=== PATIENT | male | born 1970 | race Caucasian/White ===

== ENCOUNTER 2017-04-06 19:06 | Emergency (ER) | payer OTHER ==
[2017-04-06 19:15] VITALS: BP 134/79; BMI 22.4
--- NOTE | 2017-04-06 19:35 | DR.GENAD ---
HPI - PCP Primary Care Physician: SWAPNIL - HPI Comment HPI Comment: NO TRAUMA, NO FEVER. - Complaint/Symptoms Chief Complaint Doctors Comments: HEADACHE WITH NAUSEA AND VOMITING, INTERMITTENT SINCE THURSDAY. Chief Complaint:: HEAD HURTS - Nurses notes reviewed Nurses Notes Review: Yes - Source History Provided: Patient - Mode of Arrival Mode of Arrival: Ambulatory - Timing Onset of Chief Complaint: 04/06/17 Came on: Suddenly - Duration Duration: Constant Duration: Hours - Severity Severity: Moderate PMH - PMH Past Medical History: No Past Surgical History: No - Family History History of Family Medical Conditions: No - Social History Does patient currently use any type of tobacco product: Yes Have you used tobacco products in the last 12 months: Yes Type of Tobacco Use: Cigarettes Does any household member use tobacco: No Alcohol Use: None Do you use any recreational Drugs:: No Lives With: Spouse Lives Where: Home - infectious screening In the last 2 months have you had wt loss of >10#?: NO Have you had fever, night sweats or hemotysis?: No Have you traveled outside the country in the last 6 months?: No Isolation: Standard ROS - Review of Systems Constitutional: No Symptoms Reported Eyes: No Symptoms Reported ENTM: No Symptoms Reported Respiratoy: No Symptoms Reported Cardiovascular: No Symptoms Reported Gastrointestinal/Abdominal: No Symptoms Reported Genitourinary: No Symptoms Reported Neurological: No Symptoms Reported Musculoskeletal: No Symptoms Reported Integumentary: No Symptoms Reported Hematologic/Lymphatic: No Symptoms Reported Endocrine: No Symptoms Reported All Other Systems: Reviewed and Negative PE - Vital Signs Vitals: Temperature 98.5 F Pulse Rate 74 Respiratory Rate 16 Blood Pressure 134/79 O2 Sat by Pulse Oximetry 99 - General Limitations: No Limitations General Appearance: Alert - Head Head Exam: Normal Inspection - Eyes Eye exam: Normal Appearance - ENT ENT Exam: Normal External Ear Exam External Ear Exam: Normal External Inspection TM/Canal Exam: Bilateral Normal Nose Exam: Normal Nose Exam Mouth Exam: Normal Inspection Throat Exam: Normal Inspection - Neck Neck Exam: Trachea Midline. negative: Tenderness, Meningismus, Lymphadenopathy - Chest Chest Inspection: Symmetric Chest Wall Rise - Respiratory Respiratory Exam: Normal Lung Sounds Bilat Respiratory Exam: Bilateral Clear to Auscultation - Cardiovascular Cardiovascular Exam: Regular Rate, Normal Rhythm, Normal Heart Sounds - Abdominal Exam Abdominal Exam: Normal Bowel Sounds, Soft. negative: Tenderness - Extremities Extremities Exam: Normal Inspection - Back Back Exam: Normal Inspection - Neurologic Neurological Exam: Alert, Oriented X3 - Psychiatric Psychiatric Exam: Normal Affect, Normal Mood - Skin Skin Exam: Normal Color MDM - Additional Information Additional Information Obtained From: Family - Differential Diagnosis Differential Diagnosis: HEADACHE, SINUSITIS Course - Treatment Treatment: SEE ORDERS - Reevaluation 1st: Improved (WITH MEDS IN ED.) - Education/Counseling Education/Counseling: Patient, Family, Education Educated On: Diagnosis, Needs for Follow Up ROR - XRAY XRAY Interpreted by: Radiologist XRAY Findings: REPORT DISCUSS WITH PATIENT AND HIS FAMILLY. - Diagnosis Discharge Problem: Headache Qualifiers: Headache type: unspecified Headache chronicity pattern: acute headache Intractability: intractable Qualified Code(s): R51 - Headache - Discharge Plan Disposition: 01 HOME, SELF-CARE Condition: Stable Prescriptions: Fubkeoxntq-Lhck-Roxmtsvi [Fioricet Tab] 1 tab PO Q8H PRN #20 tab PRN Reason: Migraine Headache Ibuprofen [MOTRIN TAB 600 MG *] 600 mg PO TID PRN #20 tab PRN Reason: Pain/Inflammation - Follow ups/Referrals Follow ups/Referrals: YESSI ADAMS [STAFF PHYSICIAN] - 2 days NFD,None [Primary Care Provider] - 2 days - Instructions Instructions: General Headache Without Cause, Rhwl-[id number] Additional Instructions: RETURN TO ED IF WORSE.
--- NOTE | 2017-04-06 20:13 | CT ---
CT brain without contrast Indication: Forehead pain Comparison: None available Technique: Multiple axial images of the brain were obtained from the skull base to the vertex without administr ation of IV contrast. Coronal and sagittal images were also provided. Radiation dose reduction techniques were performed utilizing adjustment for MA/kVP based on patient body size. Findings: No acute intraparenchymal hemorrhage or mass can be identified. No extra-axial fluid collections ar e seen. No alteration in the attenuation of the brain parenchyma can be identified to suggest acute or subacute ischemic change. The ventricular system is symmetric and nondilated. The extracranial structures are grossly unremarkable. IMPRESSION: 1. No acute intracranial process is identified. Reported By:
== END 2017-04-06 20:54 | disposition home or self-care (01) ==
LOC: ER 19:23
DX: R51 Headache (principal)
CPT/HCPCS: 70450; 99282; 99283

== ENCOUNTER 2022-09-25 08:27 | Inpatient (IN) ==
[2022-09-25] MEDS ORDERED: NS 100 ML IV 100 ML ONE (09:54)
[2022-09-25] MEDS ORDERED: LR 1,000 ML IV 1,000 ML IV ONE (09:54)
[2022-09-25 10:13] LABS: BASOPHILS # (AUTO) 0.1 X10^3/uL (0.0-0.1); BASOPHILS % (AUTO) 0.7 % (0.2-1.0); EOSINOPHILS # (AUTO) 0.1 x10^3/uL (0.0-0.2); EOSINOPHILS % (AUTO) 1.5 % (0.9-2.9); HEMATOCRIT 45.9 % (42.0-54.0); HEMOGLOBIN 15.9 g/dL (13.5-18.0); LYMPHOCYTES # (AUTO) 1.3 X10^3/uL (1.3-2.9); LYMPHOCYTES % (AUTO) 15.2 % (21.0-51.0); MEAN CORPUSCULAR HGB CONC 34.5 g/dL (33.0-35.0); MEAN PLATELET VOLUME 7.5 fL (7.4-11.0); MONOCYTES # (AUTO) 0.6 x10^3/uL (0.3-0.8); MONOCYTES % (AUTO) 6.6 % (0.0-13.0); NEUTROPHILS # (AUTO) 6.7 x10^3/uL (2.2-4.8); RED BLOOD COUNT 5.47 X10^6/uL (4.7-6.0); RED CELL DISTRIBUTION WIDTH 13.5 % (11.6-16.5); WHITE BLOOD COUNT 8.8 X10^3/uL (3.6-10.0)
[2022-09-25 10:28] LABS: ALANINE AMINOTRANSFERASE 25 Units/L (12-78); ALBUMIN 3.9 g/dL (3.4-5.0); ALKALINE PHOSPHATASE 108 Units/L (46-116); ASPARTATE AMINO TRANSFERASE 19 Units/L (15-37); BLOOD UREA NITROGEN 17 mg/dL (7-18); CARBON DIOXIDE 29.5 mmol/L (21-32); CHLORIDE 100 mmol/L (98-107); CREATININE 1.31 mg/dL (0.70-1.30); SODIUM 139 mmol/L (136-145); TOTAL PROTEIN 7.2 g/dL (6.4-8.2); eGFR NON BLACK RACES > 60 (>60)
--- NOTE | 2022-09-25 10:30 | RAD ---
HISTORYpre op clearance for vascular procedureSTUDYCHEST, 1 VIEWCOMPARISONNone available.FINDINGSThe trachea is midline. The cardiac silhouette is unremarkable.The lungs are clear without focal infiltrate or effusion.The bony thorax is unremarkable.IMPRESSIONNo acute cardiopulmonary findings .Electronically signed by: BERNY ALTAMIRANO III (Sep 25, 2022 10:28:37)
[2022-09-25 10:50] VITALS: BMI 22.4
[2022-09-25] MEDS ORDERED: ANCEF VIAL 1 GRAM ONE (10:57)
[2022-09-25] MEDS ORDERED: PRECEDEX INJ VIAL IVP ONE ×3 (13:03→14:47)
[2022-09-25] MEDS ORDERED: MARCAINE 0.5% ONE (13:40)
[2022-09-25] MEDS ORDERED: HEPARIN SODIUM IN D5W 75,000 UNITS/1,500 ML BAG ONE (13:41)
[2022-09-25] MEDS ORDERED: KETAMINE HCL ONE (13:47)
[2022-09-25] MEDS ORDERED: XYLOCAINE 2 % (PLAIN) ONE ×2 (13:55→14:47)
[2022-09-25] MEDS ORDERED: PEPCID 20 MG VIAL ONE (13:55)
[2022-09-25] MEDS ORDERED: ZOFRAN INJ 4 MG VIAL ONE (13:55)
[2022-09-25] MEDS ORDERED: MAGNESIUM SULFATE 50% INJ VIAL ONE (13:55)
[2022-09-25] MEDS ORDERED: DIPRIVAN VIAL 20 ML ONE (13:55)
[2022-09-25] MEDS ORDERED: FENTANYL VIAL INJ 100 mcg ONE (13:56)
[2022-09-25] MEDS ORDERED: HEPARIN SODIUM INJ 5000 UNITS ONE (13:58)
[2022-09-25] MEDS ORDERED: PROTAMINE SULFATE 50 MG VIAL ONE (14:06)
[2022-09-25] MEDS ORDERED: NEO-SYNEPHRINE INJ ONE (14:26)
[2022-09-25] MEDS ORDERED: DIPRIVAN VIAL 40 ML ONE (14:47)
[2022-09-25] MEDS ORDERED: ROBINUL ONE ×2 (15:31→15:34)
--- NOTE | 2022-09-25 15:59 | OR.IMMED ---
IMMEDIATE POST-OP NOTE Immediate Post-Op Note Pre-Op Diagnosis: acute right leg DVT. Post-Op Diagnosis: no evidence of DVT by venogram right leg. Procedure: U/S guided access right posterior tibial vein, u/s access right superficial femoral vein , right LE venogram Description of Procedure: see operative summary Surgeon/Court Orderly: Franklin Findings: as above Estimated Blood Loss: 100 cc Complications: none Discharge Progress Notes: To [facility], Home when ready, Continue Xarelto for now. FU 1 week.. Percocet 5 mg , 1 po q 6 Hr PRN pain , #20
[2022-09-25] MEDS ORDERED: PERCOCET TAB 5/325 MG ONE (16:07)
[2022-09-25] MEDS ORDERED: DILAUDID INJ ONE (17:37)
[2022-09-25] MEDS: DILAUDID INJ IVP PRN ×2 (17:40→22:56)
[2022-09-25] MEDS ORDERED: ZOFRAN INJ 4 MG VIAL IVP PRN (19:48)
[2022-09-25] MEDS: PERCOCET TAB 5/325 MG PO PRN (20:31)
--- NOTE | 2022-09-25 23:48 | DR.UPDATE ---
H&P UPDATE Review Yes Patient was examined?: Yes
--- NOTE | 2022-09-25 23:56 | NOTE.SOAP ---
Soap Note Note for Day of Date of Exam: 09/25/22 Subjective Data Subjective Data: Patient had venogram today for diagnosis of DVT of right leg with continued pain after 10 days treating with Xarelto. Venogram was normal with on scarring and no evidence of inflammation. I doubt the original diagnosis of DVT was correct. He was to be discharged home but c/o intense right leg pain. Objective Data Objective Data: Palpable pulses right ankle. Absent Saba's sign. Assessment Assessment: continued right leg pain Plan Plan: Admit for pain control, MRI of right leg and back tomorrow.
[2022-09-26] MEDS: LR 1,000 ML IV 1,000 ML IV SCH ×2 (00:49→13:09)
[2022-09-26] MEDS: PERCOCET TAB 5/325 MG PO PRN ×3 (00:50→11:06)
[2022-09-26] MEDS: DILAUDID INJ IVP PRN ×4 (03:29→19:35)
[2022-09-26 06:22] LABS: BLOOD UREA NITROGEN 16 mg/dL (7-18); CALCIUM 8.2 mg/dL (8.5-10.1); CARBON DIOXIDE 30.6 mmol/L (21-32); CHLORIDE 101 mmol/L (98-107); CREATININE 1.28 mg/dL (0.70-1.30); SODIUM 137 mmol/L (136-145); eGFR NON BLACK RACES > 60 (>60)
[2022-09-26] MEDS ORDERED: ZESTRIL TAB 20 MG ONE (08:23)
[2022-09-26] MEDS: CELEBREX PO SCH (08:28)
[2022-09-26] MEDS: ZESTRIL TAB 20 MG PO SCH (08:28)
[2022-09-26] MEDS: XARELTO PO SCH (11:11)
--- NOTE | 2022-09-26 14:01 | MRI ---
HISTORYlow back pain ; pain in right lower ext.STUDYMRI L SPINE W/O CONTRASTCOMPARISONNoneTECHNIQUEMultiplan ar multisequence MRI of the lumbar spine was obtained without contrast using standard departmental protocol.FINDINGSNo significant scoliosis. The usual lordosis is maintained. Bone marrow signal intensity is unremarkable. The heights of the vertebral bodies are normal. No spondylolisthesis. The cord ends at an appropriate level.No hydronephrosis. No abdominal aortic aneurysm. Moderate bladder distension is present.There are mild degenerative changesNo disc abnormality or stenosis at T11-12 or T12-L1.L1 -- L2: A diffuse symmetric broad based disc bulge is present. This is minimal. Minimal ligamentum flavum thickening. This leads to a very minor trefoil appearance to the canal. Minimal lateral recess stenosis. AP sac diameter measures 9-10 mm. No significant foraminal stenosis.L2 -- L3: A diffuse symmetric broad based disc bulge is present. This is minimal. Bilateral ligamentum flavum thickening is present. Probable lateral recess stenosis. AP sac diameter measures 9-10 mm. Minimal right foraminal stenosis.L3 -- L4: A diffuse symmetric broad based disc bulge is present. This is very minimal left greater than right ligamentum flavum thickening. AP sac diameter is about 11 mm. Mild left and moderate right foraminal stenosis.L4 -- L5: Diffuse concentric disc bulge is minimal off.Bilateral ligamentum flavum thickening is present. AP sac diameter is wide. Mild left and moderate right foraminal stenosis.L5 -- S1:Diffuse concentric disc bulge is minimal to moderate in size. AP sac diameter measures 12 mm. Minimal facet arthropathy. Minimal ligamentum flavum thickening. Mild left and right foraminal stenosis.IMPRESSION1. Multilevel multifactorial degenerative changes mostly resulting in lateral recess and foraminal stenosis2. Right foraminal stenosis is more severe than left at multiple levelsElectronically signed by: Brandon Walker (Sep 26, 2022 13:58:52)
--- NOTE | 2022-09-26 17:29 | DR.OPNOTE ---
OP NOTE Pre-Op Diagnosis: Acute deep venous thrombosis right leg Post-Op Diagnosis: No obvious venous thrombosis right leg Procedure Date Date Of Procedure: 09/25/22 Procedure: PROCEDURE: ULTRASOUND GUIDED VENOGRAMS OF ENTIRE DEEP VENOUS STRUCTURES RIGHT LEG NARRATIVE: The patient was taken to the operative suite and the entire right leg prepped and draped in sterile fashion. Patient was given intravenous sedation supervised by myself. Time out for the procedure obtained. Ultrasound used to identify the right posterior tibial vein and it was approached and punctured several times using ultrasound guidance but I could not get the wire to traverse the vein as I liked. Therefore, ultrasound was used to identify the right popliteal vein and ultrasound used to guide puncture of the right popliteal vein and a 0.012 inch guidewire placed. Incision made over the wire at the skin edge and a micro sheath placed over the guide wire into the right popliteal vein . Patient given 5000 units of intravenous heparin . Venogram carried out showing normal superficial femoral vein, popliteal vein and iliac vein on the right side as well as the vena cava . I was concerned about possibly missing something at the distal part of the right leg therefore ,ultrasound was used to identify the right posterior tibial vein just below the medial malleolus and ultrasound used to guide puncture of it and is 0.012 inch guide wire placed. Incision made over this guidewire at the skin edge with a number 11 knife blade and a micro sheath placed over the guide wire into the right posterior tibial vein. Venogram showed no filling defects of the deep structures of the right leg. Both micro sheaths removed. Patient given 30 mg of intravenous protamine. Dressings applied after holding pressure for 10 minutes. Type of Anesthesia: Local (0.5 % Marcaine ) Anesthesia Comment: plus MAC Findings: No obvious deep venous thrombosis or right leg Type of Fluids Used:: Lactated Ringers (800 cc) EBL: 100 cc Complications:: none Needle/Sponge Count:: correct Disposition/Condition: Pt. tolerated procedure without difficulty. Taken to [facility] in stable condition.
--- NOTE | 2022-09-27 00:07 | NOTE.SOAP ---
Soap Note Note for Day of Date of Exam: 09/26/22 Subjective Data Subjective Data: S/p venogram right leg showing no obvious DVT Afterwards with continued right leg pain.Admitted for pain control and evalution. Objective Data Temperature: 98.6 F Pulse Rate: 66 Respiratory Rate: 18 Blood Pressure: 129/63 O2 Sat by Pulse Oximetry: 95 Objective Data: Cr=1.28, all puncture sites healing well. pulses inrtact right foot. No obvious trauma. MRI of the back shows multiple areas of foraminal stenosis bilaterally. MRI of right leg still pending. Assessment Assessment: right leg pain, possible DVT Plan Plan: Pain control, await results of right leg MRI.
[2022-09-27] MEDS: DILAUDID INJ IVP PRN (06:32)
[2022-09-27] MEDS: LR 1,000 ML IV 1,000 ML IV SCH (07:22)
[2022-09-27] MEDS ORDERED: ZESTRIL TAB 20 MG ONE (07:57)
[2022-09-27] MEDS: CELEBREX PO SCH (08:13)
[2022-09-27] MEDS: ZESTRIL TAB 20 MG PO SCH (08:14)
[2022-09-27] MEDS: XARELTO PO SCH (08:15)
[2022-09-27] MEDS: PERCOCET TAB 5/325 MG PO PRN ×2 (09:43→14:19)
[2022-09-27 12:44] VITALS: BP 118/66
--- NOTE | 2022-09-27 13:53 | MRI ---
HISTORYright lower leg pain - pt states mainly calf areaSTUDYEXT LOWER NON-JOINT W/O CONCOMPARISONNone availTECHNIQUEMultiplanar multi-sequence MRI of the right lower extremity was obtained from the bilateral the knee to the ankle. No contrast was administeredFINDINGSThe bone marrow demonstrates normal signal. There is some edema noted around the neurovascular bundle which is nonspecific. There also some medial subcutaneous edema. No significant muscle edema is seen. There are no masses or fluid collections seen.IMPRESSIONNonspecific edema around the neurovascular bundle and medial subcutaneous tissues otherwise unremarkable exam. There is concern for vascular injury consider a CT with contrastElectronically signed by: ROSHNI DODD (Sep 27, 2022 13:50:53)
--- NOTE | 2022-09-27 15:21 | W.DIS.FURT ---
Summary of Discharge Discharge Summary of Date Date of Exam: 09/27/22 Admission Date Date of Admission: 09/25/22 Admission Diagnosis Hospital Course: 52 yo male you had diagnosis 1 week prior to discharge of DVT right leg while undergoing evaluation for right leg pain from the knee down with no swelling U/S interpreted as non - occlusive thrombus. Despite P.O Xarelto he continued with pain. Venogram showed absolutely no thrombus and no inflammation. Continued with pain and was admitted . MRI of the right leg read as normal. MRI of back showed multi-level disease with impingement. Will D/C home on Percocet and f/u next week and refer to neurologist and / or back surgical technologist. Will continue XARELTO for a total of 6 weeks. Vital Signs: Vital Signs (72 hours) 09/27/22 00:13 09/25/22 09:45 09/25/22 09:50 Temperature 98.6 F Pulse Rate 66 75 Pulse Rate [Right Brachial] Respiratory Rate 18 18 Blood Pressure 129/63 121/86 Blood Pressure [Right Arm] O2 Sat by Pulse Oximetry 95 97 Oxygen Delivery Method Room Air Room Air 09/25/22 15:45 09/25/22 16:15 09/25/22 16:07 Temperature 98.0 F Pulse Rate 93 H 84 Pulse Rate [Right Brachial] Respiratory Rate 18 18 18 Blood Pressure 102/69 103/76 Blood Pressure [Right Arm] O2 Sat by Pulse Oximetry 98 98 Oxygen Delivery Method Room Air Room Air 09/25/22 16:30 09/25/22 16:40 09/25/22 17:40 Temperature Pulse Rate 84 88 Pulse Rate [Right Brachial] Respiratory Rate 20 20 24 Blood Pressure 105/69 106/71 Blood Pressure [Right Arm] O2 Sat by Pulse Oximetry 98 98 Oxygen Delivery Method Room Air Room Air 09/25/22 18:00 09/25/22 17:25 09/25/22 17:40 Temperature 97.6 F 97.6 F Pulse Rate Pulse Rate [Right Brachial] 88 86 Respiratory Rate 20 20 Blood Pressure Blood Pressure [Right Arm] 121/88 122/80 O2 Sat by Pulse Oximetry 96 96 Oxygen Delivery Method Room Air Room Air Room Air 09/25/22 17:55 09/25/22 18:10 09/25/22 18:25 Temperature 97.6 F 97.6 F 97.6 F Pulse Rate Pulse Rate [Right Brachial] 86 84 78 Respiratory Rate 20 20 20 Blood Pressure Blood Pressure [Right Arm] 122/80 131/80 119/78 O2 Sat by Pulse Oximetry 96 94 L 96 Oxygen Delivery Method Room Air Room Air Room Air 09/25/22 18:10 09/25/22 17:25 09/25/22 20:31 Temperature Pulse Rate Pulse Rate [Right Brachial] Respiratory Rate 24 20 Blood Pressure Blood Pressure [Right Arm] O2 Sat by Pulse Oximetry Oxygen Delivery Method Room Air 09/25/22 21:31 09/25/22 19:00 09/25/22 20:00 Temperature 97.4 F L Pulse Rate Pulse Rate [Right Brachial] 62 Respiratory Rate 18 18 Blood Pressure Blood Pressure [Right Arm] 114/71 O2 Sat by Pulse Oximetry 98 Oxygen Delivery Method Room Air Room Air 09/25/22 22:56 09/25/22 19:25 09/25/22 20:25 Temperature 97.4 F L 97.7 F Pulse Rate Pulse Rate [Right Brachial] 62 70 Respiratory Rate 18 20 20 Blood Pressure Blood Pressure [Right Arm] 119/71 114/76 O2 Sat by Pulse Oximetry 98 97 Oxygen Delivery Method Room Air Room Air 09/25/22 21:25 09/25/22 22:25 09/25/22 23:26 Temperature 97.5 F L 97.6 F Pulse Rate Pulse Rate [Right Brachial] 60 57 L Respiratory Rate 20 20 18 Blood Pressure Blood Pressure [Right Arm] 111/72 127/69 O2 Sat by Pulse Oximetry 98 97 Oxygen Delivery Method Room Air Room Air 09/26/22 00:50 09/26/22 01:50 09/26/22 03:29 Temperature Pulse Rate Pulse Rate [Right Brachial] Respiratory Rate 18 18 18 Blood Pressure Blood Pressure [Right Arm] O2 Sat by Pulse Oximetry Oxygen Delivery Method 09/26/22 04:00 09/26/22 03:59 09/26/22 06:02 Temperature 97.9 F Pulse Rate Pulse Rate [Right Brachial] 54 L Respiratory Rate 18 18 18 Blood Pressure Blood Pressure [Right Arm] 108/64 O2 Sat by Pulse Oximetry 98 Oxygen Delivery Method Room Air 09/26/22 08:29 09/26/22 07:00 09/26/22 08:00 Temperature 98.5 F Pulse Rate Pulse Rate [Right Brachial] 60 Respiratory Rate 18 18 Blood Pressure Blood Pressure [Right Arm] 115/79 O2 Sat by Pulse Oximetry 98 Oxygen Delivery Method Room Air Room Air 09/26/22 07:02 09/26/22 08:59 09/26/22 11:06 Temperature Pulse Rate Pulse Rate [Right Brachial] Respiratory Rate 18 18 18 Blood Pressure Blood Pressure [Right Arm] O2 Sat by Pulse Oximetry Oxygen Delivery Method 09/26/22 12:06 09/26/22 15:13 09/26/22 16:00 Temperature 98.6 F Pulse Rate Pulse Rate [Right Brachial] 66 Respiratory Rate 18 18 18 Blood Pressure Blood Pressure [Right Arm] 129/73 O2 Sat by Pulse Oximetry 95 Oxygen Delivery Method Room Air 09/26/22 19:35 09/26/22 20:00 09/26/22 19:00 Temperature 99.3 F Pulse Rate Pulse Rate [Right Brachial] 78 Respiratory Rate 20 20 Blood Pressure Blood Pressure [Right Arm] 131/79 O2 Sat by Pulse Oximetry 97 Oxygen Delivery Method Room Air 09/26/22 20:05 09/27/22 00:00 09/27/22 04:00 Temperature 98.6 F 98.4 F Pulse Rate Pulse Rate [Right Brachial] 59 L 60 Respiratory Rate 18 18 18 Blood Pressure Blood Pressure [Right Arm] 118/73 103/71 O2 Sat by Pulse Oximetry 97 98 Oxygen Delivery Method Room Air Room Air 09/27/22 06:32 09/27/22 07:02 09/27/22 08:30 Temperature Pulse Rate Pulse Rate [Right Brachial] Respiratory Rate 20 20 Blood Pressure Blood Pressure [Right Arm] O2 Sat by Pulse Oximetry Oxygen Delivery Method Room Air 09/27/22 09:43 09/27/22 10:43 09/27/22 08:00 Temperature 98.6 F Pulse Rate Pulse Rate [Right Brachial] 67 Respiratory Rate 18 18 18 Blood Pressure Blood Pressure [Right Arm] 112/74 O2 Sat by Pulse Oximetry 96 Oxygen Delivery Method Room Air 09/27/22 12:00 09/27/22 14:19 Temperature 98.9 F Pulse Rate Pulse Rate [Right Brachial] 68 Respiratory Rate 18 18 Blood Pressure Blood Pressure [Right Arm] 118/66 O2 Sat by Pulse Oximetry 96 Oxygen Delivery Method Room Air Labs: Laboratory Last Values WBC 8.8 X10^3/uL (3.6-10.0) 09/25/22 10:08 RBC 5.47 X10^6/uL (4.7-6.0) 09/25/22 10:08 Hgb 15.9 g/dL (13.5-18.0) 09/25/22 10:08 Hct 45.9 % (42.0-54.0) 09/25/22 10:08 MCV 84.0 fL (80.0-100.0) 09/25/22 10:08 MCH 29.0 pg (27.0-34.0) 09/25/22 10:08 MCHC 34.5 g/dL (33.0-35.0) 09/25/22 10:08 RDW 13.5 % (11.6-16.5) 09/25/22 10:08 Plt Count 289 X10^3/uL (150.0-450.0) 09/25/22 10:08 MPV 7.5 fL (7.4-11.0) 09/25/22 10:08 Neut % (Auto) 76.0 % (42.0-75.0) H 09/25/22 10:08 Lymph % (Auto) 15.2 % (21.0-51.0) L 09/25/22 10:08 Walton % (Auto) 6.6 % (0.0-13.0) 09/25/22 10:08 Eos % (Auto) 1.5 % (0.9-2.9) 09/25/22 10:08 Baso % (Auto) 0.7 % (0.2-1.0) 09/25/22 10:08 Neut # (Auto) 6.7 x10^3/uL (2.2-4.8) H 09/25/22 10:08 Lymph # (Auto) 1.3 X10^3/uL (1.3-2.9) 09/25/22 10:08 Walton # (Auto) 0.6 x10^3/uL (0.3-0.8) 09/25/22 10:08 Eos # (Auto) 0.1 x10^3/uL (0.0-0.2) 09/25/22 10:08 Baso # (Auto) 0.1 X10^3/uL (0.0-0.1) 09/25/22 10:08 Absolute Nucleated RBC 0.1 /100WBC 09/25/22 10:08 Sodium 137 mmol/L (136-145) 09/26/22 05:18 Corrected Sodium TNP 09/26/22 05:18 Potassium 4.0 mmol/L (3.5-5.1) 09/26/22 05:18 Chloride 101 mmol/L (98-107) 09/26/22 05:18 Carbon Dioxide 30.6 mmol/L (21-32) 09/26/22 05:18 BUN 16 mg/dL (7-18) 09/26/22 05:18 Creatinine 1.28 mg/dL (0.70-1.30) 09/26/22 05:18 Est GFR (MDRD) Af Amer > 60 (>60) 09/26/22 05:18 Est GFR (MDRD) Non-Af > 60 (>60) 09/26/22 05:18 Glucose 94 mg/dL (65-99) 09/26/22 05:18 Calcium 8.2 mg/dL (8.5-10.1) L 09/26/22 05:18 Corrected Calcium TNP 09/25/22 10:08 Total Bilirubin 0.80 mg/dL (0.2-1.0) 09/25/22 10:08 AST 19 Units/L (15-37) 09/25/22 10:08 ALT 25 Units/L (12-78) 09/25/22 10:08 Alkaline Phosphatase 108 Units/L (46-116) 09/25/22 10:08 Total Protein 7.2 g/dL (6.4-8.2) 09/25/22 10:08 Albumin 3.9 g/dL (3.4-5.0) 09/25/22 10:08 Globulin 3.3 g/dL (2.5-4.5) 09/25/22 10:08 Albumin/Globulin Ratio 1.2 Ratio (1.1-2.1) 09/25/22 10:08 Reason For Visit: VENOGRAM, INTRACTABLE PAIN Discharge Date Discharge Date: 09/27/22 Discharge Diagnosis All Active Problems (Updated 09/27/22 @ 15:20 by Ten Reid) Right leg DVT (Acute) Leg pain, right (Acute) Headache (Acute) Plan of Treatment: Continue with present treatment and follow up plan. Pt is to keep follow up appointment as instructed and take medications as ordered. Discharge Medications Discharge Medications: No Known Drug Allergies Allergy (Verified 09/25/22 10:00) CONTINUE taking the following medications celecoxib 100 mg capsule (Celebrex) 100 mg PO DAILY 09/25/22 [History] lisinopril 20 mg tablet 20 mg PO DAILY 09/25/22 [History] rivaroxaban 20 mg tablet (Xarelto) 20 mg PO DAILY 09/25/22 [History] testosterone cypionate 200 mg/mL intramuscular oil 200 mg IM Q2W 09/25/22 [History] tramadol 50 mg tablet 50 mg PO BID 09/25/22 [History] New Prescriptions oxycodone-acetaminophen 5 mg-325 mg tablet (Percocet) 1 tab PO Q6H PRN #30 tabs 09/27/22 [Rx] Discharge Disposition Assessment: see hospital course above Discharge Plan Discharge Plan Hospital Course: 52 yo male you had diagnosis 1 week prior to discharge of DVT right leg while undergoing evaluation for right leg pain from the knee down with no swelling U/S interpreted as non - occlusive thrombus. Despite P.O Xarelto he continued with pain. Venogram showed absolutely no thrombus and no inflammation. Continued with pain and was admitted . MRI of the right leg read as normal. MRI of back showed multi-level disease with impingement. Will D/C home on Percocet and f/u next week and refer to neurologist and / or back surgical technologist. Will continue XARELTO for a total of 6 weeks. Patient Disposition: 01 HOME, SELF-CARE Condition: Stable Health Concerns: Post Hospitalization: new medications and changes needed to prevent readmission or further decline. Pt educated and given instructions on all concerns. Care Plan Goals: Pain relief and evaluation of back pain. Plan of Treatment: Continue with present treatment and follow up plan. Pt is to keep follow up appointment as instructed and take medications as ordered. Assessment: see hospital course above Prescription drug monitoring program results: PDMP reviewed with concerns identified Prescriptions: New oxycodone-acetaminophen [Percocet] 5-325 mg tablet 1 tab PO Q6H MDD 4 PRNQty: 30 0RF Continued lisinopril 20 mg Tablet 20 mg PO DAILY tramadol 50 mg Tablet 50 mg PO BID testosterone cypionate 200 mg/mL Oil 200 mg IM Q2W celecoxib [Celebrex] 100 mg Capsule 100 mg PO DAILY Xarelto 20 mg Tablet 20 mg PO DAILY Follow ups/Referrals Follow ups/Referrals: SWAPNIL,None [Primary Care Provider] - PCP Ten Reid [STAFF PHYSICIAN] - 10/03/22 11:30 am Instructions Instructions: Venogram Activity Restrictions/Additional Instructions: POST OPERATIVE INSTRUCTIONS: (1) A RESPONSIBLE ADULT SHOULD REMAIN WITH YOU TODAY, YOU SHOULD BE ASSISTED TO THE BATHROOM FOR 6-8 HOURS. REST QUIETLY THE REMAINDER OF THE DAY. (2) DEEP BREATHING AND COUGHING EXERCISES FOR THE NEXT 6-8 HOURS. (3)SMOKE ONLY IF SOMEONE IS WITH YOU FOR THE NEXT 12 HOURS. (4) DIET TOLERATED, DRINK PLENTY OF WATER. (5) DO NOT DRIVE YOUR AUTOMOBILE OR OPERATE MACHINERY FOR 12-18 HOURS AFTER RECEIVING A GENERAL ANESTHETIC OR WHILE TAKING NARCOTIC PAIN MEDICATION. (6) SOME ANESTHETIC AGENTS AND MEDICATION TAKEN FOR PAIN MAY CAUSE NAUSEA. IF NAUSEA PERSISTS FOR SEVERAL HOURS AT HOME, CALL YOUR DOCTOR. (7) LIGHT ACTIVITIES. (8) OBSERVE OPERATIVE AREA FOR SIGNS OF INFECTION: REDNESS, SWELLING, FOUL ODOR, DRAINAGE, AND NOTIFY FOR ANY CONCERNS OR FEVER OVER 101.0. (9) KEEP OPERATIVE AREA CLEAN AND DRY. YOU MAY REMOVE DRESSING AFTER 24 HOURS AND SHOWER/BATH WITH ANTIBACTERIAL SOAP. (10) RESUME ALL PREVIOUS MEDICATIONS PRESCRIBED BY YOUR DOCTOR. (11) TAKE PAIN MEDICATIONS PRESCRIBED. (12) OBSERVE AFFECTED AREA FOR CIRCULATION, CHANGE OF COLOR, NUMBNESS OR TINGLING, COLDNESS, INCREASED PAIN, OR BLEEDING. FOR ANY COMPLICATIONS PLEASE CALL DR. REID @ PRIOR TO GOING TO EMERGENCY DEPARTMENT. FOLLOW UP WITH DR. REID ON September AT 1130 AM Stand Alone Forms: Precautions for COVID, [facility], Patient Portal, Social Distancing
== END 2022-09-27 16:06 | disposition home or self-care (01) | DRG 556 ==
LOC: SURG1 08:27 → MED/SURG 17:12
PROVIDERS: ADMIT Surgery; ATTEND Surgery
DX: M79.604 Pain in right leg; J44.9 Chronic obstructive pulmonary disease, unspecified; I10 Essential (primary) hypertension; M25.80 Other specified joint disorders, unspecified joint